=== PATIENT | female | born 1980 | race Asian ===

== ENCOUNTER 2023-07-28 10:09 | Day surgery (SDC) | payer OTHER ==
[~2023-07-28] VITALS: Ht 160 cm; Wt 47.2 kg
[2023-07-28] MEDS ORDERED: LIDOCAINE 2% 100 MG/5 ML UJET TP ONE (11:39)
[2023-07-28] MEDS ORDERED: fentaNYL citrate 0.05 MG/ML VIAL ONE (11:39)
[2023-07-28] MEDS ORDERED: fentaNYL citrate 0.05 MG/ML VIAL IVP ONE (13:05)
== END 2023-07-28 12:40 | disposition home or self-care (01) ==
LOC: MDS 10:09 → MMU 10:25 → MDS 12:40
PROVIDERS: ATTEND Internal Medicine Gastroenterology
DX: K62.5 Hemorrhage of anus and rectum (principal); K64.9 Unspecified hemorrhoids
CPT/HCPCS: 45378; J3010